=== PATIENT | female | born 1950 | race Caucasian/White ===

== ENCOUNTER 2021-09-03 06:59 | Day surgery (SDC) | payer MEDICARE ==
[2021-09-03] MEDS: Sodium Chloride 0.9% 10 ML Syringe FLUSH PRN (07:45)
[2021-09-03 08:45] VITALS: BP 156/82; PULSE 69
== END 2021-09-03 08:48 | disposition home or self-care (01) ==
LOC: JP.SDS 06:59
PROVIDERS: ATTEND Ophthalmology
DX: H25.12 Age-related nuclear cataract, left eye (principal); J44.9 Chronic obstructive pulmonary disease, unspecified; F17.200 Nicotine dependence, unspecified, uncomplicated
CPT/HCPCS: J3490; V2632

== ENCOUNTER 2022-03-29 11:21 | Emergency (ER) | payer MEDICARE ==
[2022-03-29] MEDS ORDERED: Albuterol 0.083% 2.5 MG/3 ML Neb Soln NEB ONE (12:50)
[2022-03-29 13:04] LABS: ESTIMATED GFR 92 mL/min (>60)
[2022-03-29 13:08] LABS: CORONAVIRUS COVID-19 NAA NEGATIVE (NEGATIVE)
[2022-03-29] MEDS ORDERED: methylPREDNISolone Sodium Succinate 40 MG/1 ML SDV IVPUSH ONE (13:35)
[2022-03-29] MEDS ORDERED: Magnesium Sulfate/Water 2 GM in Premix Bag 1 BAG IV ONE (13:36)
[2022-03-29] MEDS ORDERED: Sodium Chloride 0.9% 10 ML Syringe FLUSH PRN ×2 (13:36→13:43)
[2022-03-29] MEDS ORDERED: Doxycycline 100 MG in Sodium Chloride 0.9% 100 ML IV ONE (13:38)
[2022-03-29] MEDS ORDERED: Sodium Chloride 0.9% 75 ML IV ONE (13:43)
[2022-03-29] MEDS ORDERED: Iopamidol 755 Mg/ML 100 ML Bottle IV SCH (13:45)
[2022-03-29 15:56] VITALS: BP 137/95; PULSE 92
== END 2022-03-29 17:04 | disposition home or self-care (01) ==
LOC: JP.ED 11:21
DX: J44.1 Chronic obstructive pulmonary disease with (acute) exacerbation (principal); R91.1 Solitary pulmonary nodule; E87.1 Hypo-osmolality and hyponatremia; E87.8 Other disorders of electrolyte and fluid balance, not elsewhere classified; I10 Essential (primary) hypertension; Z87.891 Personal history of nicotine dependence; Z88.0 Allergy status to penicillin; Z88.8 Allergy status to other drugs, medicaments and biological substances; Z88.1 Allergy status to other antibiotic agents; Z88.5 Allergy status to narcotic agent; Z88.2 Allergy status to sulfonamides; Z79.899 Other long term (current) drug therapy; Z20.822 Contact with and (suspected) exposure to COVID-19
CPT/HCPCS: 0241U; 36415; 71046; 71275; 80053; 81001; 82803; 83880; 84439; 84443; 84481; 84484; 85025; 93005; 94640; 96365; 96366; 96368; 96375; 99285; J2920; J3475; J3490